=== PATIENT | male | born 1950 | race Hispanic/Latino ===

== ENCOUNTER → 2017-10-23 | Outpatient (CLI) | payer OTHER ==
[~2017-10-23] MED LIST: AMLO5TAB2 PO; ASPI-1005 PO; ATOR40TA69 PO; BUPR100T13 PO; CARV12.511 PO; CARV3.1262 PO; CLOP75TA14 PO; FURO40TA7 PO; NITR0.4T SL; OLME20TA10 PO; SACU1TAB7 PO; SPIR25TA PO; TRAM-355 PO
== END | disposition home or self-care (01) ==
LOC: SHCH 08:37
PROVIDERS: ATTEND Internal Medicine Cardiovascular Disease
DX: I42.9 Cardiomyopathy, unspecified (principal); I67.9 Cerebrovascular disease, unspecified
CPT/HCPCS: 93880

== ENCOUNTER → 2017-10-28 | Outpatient (CLI) | payer OTHER | END | disposition home or self-care (01) | LOC: SHCH 13:17 | PROVIDERS: ATTEND Internal Medicine Cardiovascular Disease | DX: I42.9 Cardiomyopathy, unspecified (principal) | CPT/HCPCS: 93306 ==

== ENCOUNTER → 2017-12-02 | Outpatient (CLI) | payer OTHER | END | disposition home or self-care (01) | LOC: SHCH 09:01 | PROVIDERS: ATTEND Internal Medicine Cardiovascular Disease | DX: I67.9 Cerebrovascular disease, unspecified (principal); R94.39 Abnormal result of other cardiovascular function study | CPT/HCPCS: 78481; A9512 ==

== ENCOUNTER 2017-12-16 09:28 | Observation (INO) | payer OTHER ==
[~2017-12-16] VITALS: Ht 165.1 cm; Wt 111.0 kg
[~2017-12-16 09:28] MED LIST changes: -BUPR100T13 PO; -SACU1TAB7 PO
[2017-12-16 10:04] LABS: BASOPHILS % (AUTO) 0.9 % (0.0-5.0); EOSINOPHILS % (AUTO) 3.3 % (0.0-8.0); HEMATOCRIT 42.7 % (42-54); LYMPHOCYTES % (AUTO) 20.4 % (21.0-51.0); MEAN CORPUSCULAR HEMOGLOBIN 30.2 pg (27.0-33.0); MEAN CORPUSCULAR HGB CONC 33.9 g/dL (32.0-36.0); MONOCYTES % (AUTO) 8.9 % (3.0-13.0); NEUTROPHILS % (AUTO) 66.5 % (40.0-77.0); PLATELET COUNT (AUTO) 256 K/uL (130-400); RED CELL DISTRIBUTION WIDTH 14.2 % (11.0-15.5); WHITE BLOOD COUNT (AUTO) 7.1 K/uL (4.8-10.8)
[2017-12-16 10:13] LABS: CREATININE 0.9 mg/dL (0.5-1.5); INR 1.02 (0.85-1.15); PARTIAL THROMBOPLASTIN TIME 28.5 SEC (26.3-35.5); PROTHROMBIN TIME 10.7 SEC (9.6-11.6)
[2017-12-16 10:23] LABS: B-TYPE NATRIURETIC PEPTIDE 35 pg/mL (0-100)
[2017-12-16 10:27] LABS: ALBUMIN 3.8 g/dL (3.5-5.0); BILIRUBIN,TOTAL 0.7 mg/dL (0.2-1.0); CREATINE KINASE MB 2.8 ng/mL (0.5-3.6); TOTAL PROTEIN, SERUM 8.2 g/dL (6.0-8.3)
[2017-12-16] MEDS ORDERED: ASPIRIN 325 MG TABLET ONE (12:27)
[2017-12-16] MEDS ORDERED: LACTULOSE 20 GM/30 ML UDCUP PO PRN (17:15)
[2017-12-16] MEDS ORDERED: HYDRALAZINE HCL 20 MG/ML VIAL IV PRN (17:15)
[2017-12-16] MEDS ORDERED: MORPHINE SULFATE 2 MG/ML 1ML SYG IV PRN (17:15)
[2017-12-16] MEDS ORDERED: ONDANSETRON HCL 4 MG/2 ML VIAL IV PRN (17:15)
[2017-12-16] MEDS ORDERED: NITROGLYCERIN 0.4 MG SL TAB SL PRN (17:15)
[2017-12-16] MEDS ORDERED: ACETAMINOPHEN 325 MG TAB PO PRN (17:15)
[2017-12-16] MEDS ORDERED: GUAIFENESIN-DM 200/20 MG 10 ML PO PRN (17:15)
[2017-12-16 17:53] LABS: CREATINE KINASE MB 1.9 ng/mL (0.5-3.6); CREATINE KINASE, TOTAL 141 U/L (21-232); MYOGLOBIN 53 ng/mL (10-92); TROPONIN I < 0.04 ng/mL (0.00-0.06)
[2017-12-17 01:49] LABS: CREATINE KINASE MB 1.7 ng/mL (0.5-3.6); TROPONIN I 0.04 ng/mL (0.00-0.06)
[2017-12-17 05:23] LABS: HEMOGLOBIN A1C 5.9 % (4.0-6.0)
[2017-12-17 05:27] LABS: POTASSIUM 3.8 mmol/L (3.5-5.1)
[2017-12-17] MEDS ORDERED: BUPR100T13 PO (08:35)
[2017-12-17] MEDS ORDERED: SACU1TAB7 PO (08:35)
[2017-12-17 08:44] VITALS: BP 134/73
[2017-12-17] MEDS: PANTOPRAZOLE SODIUM 40 MG TABLET.DR PO SCH (09:00)
[2017-12-17] MEDS: ENOXAPARIN SODIUM 40 MG/0.4 ML SYRINGE SQ SCH (09:00)
[2017-12-17] MEDS ORDERED: ENOXAPARIN SODIUM 40 MG/0.4 ML SYRINGE SQ ONE (09:39)
[2017-12-17] MEDS ORDERED: PANTOPRAZOLE SODIUM 40 MG TABLET.DR PO ONE (09:39)
[2017-12-17 16:00] VITALS: BP 139/89
[2017-12-17] MEDS ORDERED: TRAMADOL /APAP 37.5MG/325MG TAB PO PRN (19:30)
[2017-12-17] MEDS ORDERED: NITROGLYCERIN 0.4 MG SL TAB SL PRN (19:30)
[2017-12-17] MEDS ORDERED: ONDANSETRON HCL MDV 20ML 2 MG/ML VIAL IV PRN (19:42)
[2017-12-17] MEDS ORDERED: MORPHINE SULFATE 4 MG/1ML SYG IV PRN (19:42)
[2017-12-17 20:00] VITALS: BP 139/94
[2017-12-17] MEDS: VALSARTAN PO SCH (21:00)
[2017-12-17] MEDS: SACUBITRIL PO SCH (21:00)
[2017-12-17] MEDS: ATORVASTATIN CALCIUM 40 MG TABLET PO SCH (21:33)
[2017-12-17] MEDS: CARVEDILOL 3.125 MG TABLET PO SCH (21:35)
[2017-12-17 23:41] VITALS: BP 132/89
[2017-12-18] VITALS (12 sets, daily range): BP systolic 121–156; BP diastolic 75–97
[2017-12-18 06:04] LABS: BASOPHILS % (AUTO) 0.7 % (0.0-5.0); EOSINOPHILS % (AUTO) 3.5 % (0.0-8.0); HEMATOCRIT 39.5 % (42-54); MEAN CORPUSCULAR HEMOGLOBIN 31.4 pg (27.0-33.0); MEAN CORPUSCULAR HGB CONC 35.1 g/dL (32.0-36.0); MEAN CORPUSCULAR VOLUME 89.5 fL (79-99); MONOCYTES % (AUTO) 8.6 % (3.0-13.0); NEUTROPHILS % (AUTO) 64.2 % (40.0-77.0); PLATELET COUNT (AUTO) 227 K/uL (130-400); RED BLOOD CELL COUNT(AUTO) 4.41 MIL/uL (4.50-6.20); RED CELL DISTRIBUTION WIDTH 14.4 % (11.0-15.5); WHITE BLOOD COUNT (AUTO) 7.2 K/uL (4.8-10.8)
[2017-12-18 06:20] LABS: CREATININE 1.1 mg/dL (0.5-1.5); POTASSIUM 3.9 mmol/L (3.5-5.1)
[2017-12-18] MEDS: FUROSEMIDE 40 MG TABLET PO SCH (09:00)
[2017-12-18] MEDS ORDERED: ASPIRIN 81MG TAB.CHEW PO SCH (09:00)
[2017-12-18] MEDS: PANTOPRAZOLE SODIUM 40 MG TABLET.DR PO SCH (09:00)
[2017-12-18] MEDS: ENOXAPARIN SODIUM 40 MG/0.4 ML SYRINGE SQ SCH (09:00)
[2017-12-18] MEDS: SPIRONOLACTONE 25 MG TAB PO SCH (09:00)
[2017-12-18] MEDS ORDERED: CLOPIDOGREL BISULFATE 75 MG TAB PO SCH (09:00)
[2017-12-18] MEDS: VALSARTAN PO SCH ×2 (09:00→20:13)
[2017-12-18] MEDS: BUPROPION HCL 150 MG TABLET.SA PO SCH (09:00)
[2017-12-18] MEDS: CARVEDILOL 3.125 MG TABLET PO SCH ×2 (09:00→20:12)
[2017-12-18] MEDS: SACUBITRIL PO SCH ×2 (09:00→20:13)
[2017-12-18] MEDS ORDERED: REGADENOSON 0.4 MG/5 ML PF SYG IVP SCH (10:00)
[2017-12-18] MEDS ORDERED: SODIUM CHLORIDE 0.9% 500ML 500 ML IV SCH (13:55)
[2017-12-18] MEDS ORDERED: MORPHINE SULFATE 5 MG/ML VIAL IVP SCH (16:15)
[2017-12-18] MEDS ORDERED: TEMAZEPAM 30 MG CAP PO PRN (16:15)
[2017-12-18] MEDS ORDERED: ACETAMINOPHEN-CODEINE 300/30MG TAB PO PRN ×2 (16:15)
[2017-12-18] MEDS ORDERED: MORPHINE SULFATE 4 MG/1ML SYG IVP SCH (16:15)
[2017-12-18] MEDS ORDERED: ONDANSETRON HCL 4 MG/2 ML VIAL IVP PRN (16:15)
[2017-12-18] MEDS ORDERED: ONDANSETRON HCL 4 MG/2 ML VIAL IVP SCH (16:15)
[2017-12-18] MEDS: ATORVASTATIN CALCIUM 40 MG TABLET PO SCH (20:13)
[2017-12-19 04:22] VITALS: BP 130/79
[2017-12-19 05:05] LABS: BASOPHILS % (AUTO) 0.4 % (0.0-5.0); EOSINOPHILS % (AUTO) 2.3 % (0.0-8.0); HEMATOCRIT 40.9 % (42-54); LYMPHOCYTES % (AUTO) 22.9 % (21.0-51.0); MEAN CORPUSCULAR HEMOGLOBIN 30.3 pg (27.0-33.0); MEAN CORPUSCULAR HGB CONC 33.9 g/dL (32.0-36.0); MEAN CORPUSCULAR VOLUME 89.2 fL (79-99); MONOCYTES % (AUTO) 8.6 % (3.0-13.0); NEUTROPHILS % (AUTO) 65.8 % (40.0-77.0); PLATELET COUNT (AUTO) 228 K/uL (130-400); RED BLOOD CELL COUNT(AUTO) 4.58 MIL/uL (4.50-6.20); RED CELL DISTRIBUTION WIDTH 14.2 % (11.0-15.5); WHITE BLOOD COUNT (AUTO) 6.5 K/uL (4.8-10.8)
[2017-12-19 05:06] LABS: POTASSIUM 3.8 mmol/L (3.5-5.1)
[2017-12-19 07:00] VITALS: BP 128/71
[2017-12-19] MEDS ORDERED: CLOPIDOGREL BISULFATE 75 MG TAB PO SCH (09:00)
[2017-12-19] MEDS: VALSARTAN PO SCH (09:00)
[2017-12-19] MEDS: SACUBITRIL PO SCH (09:00)
[2017-12-19] MEDS ORDERED: ASPIRIN 81MG TAB.CHEW PO SCH (09:00)
[2017-12-19] MEDS: BUPROPION HCL 150 MG TABLET.SA PO SCH (09:54)
[2017-12-19] MEDS: PANTOPRAZOLE SODIUM 40 MG TABLET.DR PO SCH (09:54)
[2017-12-19] MEDS: FUROSEMIDE 40 MG TABLET PO SCH (09:54)
[2017-12-19] MEDS: SPIRONOLACTONE 25 MG TAB PO SCH (09:54)
[2017-12-19] MEDS: CARVEDILOL 3.125 MG TABLET PO SCH (09:54)
[2017-12-19] MEDS: ENOXAPARIN SODIUM 40 MG/0.4 ML SYRINGE SQ SCH (09:55)
[2017-12-19 11:00] VITALS: BP 146/78
[2017-12-19 19:18] VITALS: BP 140/68
== END 2017-12-19 15:37 | disposition home or self-care (01) ==
LOC: EDH 09:28 → EDHIP 11:50 → 3BH 12-17 16:43 → 2DH 12-18 16:20
PROVIDERS: ADMIT Family Medicine; ATTEND Family Medicine
DX: I25.110 Atherosclerotic heart disease of native coronary artery with unstable angina pectoris (principal); E11.9 Type 2 diabetes mellitus without complications; E78.5 Hyperlipidemia, unspecified; I11.0 Hypertensive heart disease with heart failure; I50.22 Chronic systolic (congestive) heart failure; G47.33 Obstructive sleep apnea (adult) (pediatric); E66.9 Obesity, unspecified; I25.5 Ischemic cardiomyopathy; Z87.891 Personal history of nicotine dependence; Z95.5 Presence of coronary angioplasty implant and graft; Z82.49 Family history of ischemic heart disease and other diseases of the circulatory system; Z83.3 Family history of diabetes mellitus; Z96.652 Presence of left artificial knee joint
CPT/HCPCS: 36415 ×4; 71045; 80048 ×3; 80053; 80061 ×2; 82550 ×3; 82553 ×3; 82948 ×4; 83036; 83874 ×2; 83880 ×2; 84484 ×3; 85025 ×3; 85610; 85730; 93005 ×4; 93458; 96372; 99285; C1760; C1769; C1874; C1887; C1894; C9600; G0378 ×76; J0583; J1644; J1650 ×2; J2270; J2785; J3490 ×2; Q9967 ×2

== ENCOUNTER → 2020-06-24 | Outpatient (CLI) | payer MEDICARE ==
[~2020-06-24] MED LIST changes: -AMLO5TAB2 PO; +BUPR100T13 PO; -CARV12.511 PO; -OLME20TA10 PO; +SACU1TAB7 PO
== END | disposition home or self-care (01) ==
LOC: SHCH 07:54
PROVIDERS: ATTEND Internal Medicine Cardiovascular Disease
DX: I50.22 Chronic systolic (congestive) heart failure (principal)
CPT/HCPCS: 78481; A9512

== ENCOUNTER 2021-03-14 05:55 | Day surgery (SDC) | payer MEDICARE ==
[2021-03-13 13:35] LABS: BASOPHILS % (AUTO) 0.6 % (0.0-5.0); EOSINOPHILS % (AUTO) 3.1 % (0.0-8.0); HEMATOCRIT 45.3 % (42-54); LYMPHOCYTES % (AUTO) 23.2 % (21.0-51.0); MEAN CORPUSCULAR HEMOGLOBIN 30.7 pg (27.0-33.0); MEAN CORPUSCULAR HGB CONC 33.1 g/dL (32.0-36.0); MEAN CORPUSCULAR VOLUME 92.8 fL (79-99); MONOCYTES % (AUTO) 9.8 % (3.0-13.0); NEUTROPHILS % (AUTO) 63.1 % (40.0-77.0); PLATELET COUNT (AUTO) 197 K/uL (130-400); RED BLOOD CELL COUNT(AUTO) 4.88 MIL/uL (4.50-6.20); RED CELL DISTRIBUTION WIDTH 13.7 % (11.0-15.5); WHITE BLOOD COUNT (AUTO) 5.4 K/uL (4.8-10.8)
[2021-03-13 13:43] LABS: CREATININE 0.9 mg/dL (0.5-1.5); POTASSIUM 4.1 mmol/L (3.5-5.1)
[2021-03-13 15:04] VITALS: BP 179/89
[~2021-03-14] VITALS: Ht 165.1 cm; Wt 109.1 kg
[2021-03-14] VITALS (8 sets, daily range): BP systolic 144–176; BP diastolic 82–101
[~2021-03-14 05:55] MED LIST changes: -ASPI-1005 PO; -BUPR100T13 PO; -CARV3.1262 PO; -CLOP75TA14 PO; -FURO40TA7 PO; +METO-408 PO; -NITR0.4T SL; +SACU1TAB PO; -SACU1TAB7 PO; -TRAM-355 PO
[2021-03-14] MEDS ORDERED: HEPARIN 10,000 UNIT/10ML (1,000 UNIT/ML) VIAL ONE (07:13)
[2021-03-14] MEDS ORDERED: SODIUM BICARB 50MEQ 50ML VIAL 50 ML ONE (07:13)
[2021-03-14] MEDS ORDERED: FENTANYL CITRATE PF 50 MCG/1 ML 2ML VIAL ONE (07:14)
[2021-03-14] MEDS ORDERED: LIDOCAINE HCL 400MG/20ML VIAL ONE (07:14)
[2021-03-14] MEDS ORDERED: MIDAZOLAM HCL 1 MG/ML 2ML VIAL ONE (07:14)
[2021-03-14] MEDS ORDERED: IODIXANOL 320 MG/ML 100 ML VIAL ONE (07:19)
[2021-03-14] MEDS ORDERED: 0.9%NACL 1000ML 1,000 ML IV SCH (08:00)
== END 2021-03-14 11:30 | disposition home or self-care (01) ==
LOC: DAH 05:55
PROVIDERS: ATTEND Internal Medicine Cardiovascular Disease
DX: I50.43 Acute on chronic combined systolic (congestive) and diastolic (congestive) heart failure (principal); I25.10 Atherosclerotic heart disease of native coronary artery without angina pectoris; I13.0 Hypertensive heart and chronic kidney disease with heart failure and stage 1 through stage 4 chronic kidney disease, or unspecified chronic kidney disease; N18.1 Chronic kidney disease, stage 1; I95.1 Orthostatic hypotension; I44.7 Left bundle-branch block, unspecified; E78.5 Hyperlipidemia, unspecified; E66.01 Morbid (severe) obesity due to excess calories; G47.33 Obstructive sleep apnea (adult) (pediatric); Z95.5 Presence of coronary angioplasty implant and graft; Z79.899 Other long term (current) drug therapy; Z98.890 Other specified postprocedural states; Z82.49 Family history of ischemic heart disease and other diseases of the circulatory system; Z68.38 Body mass index [BMI] 38.0-38.9, adult
CPT/HCPCS: 33289; 36415; 71045; 80048; 85025; 93005; A4215; A4216; A4221; A4222; A4223 ×3; A4606; A4663; A6260; C1760; C1769 ×2; C1894 ×3; C2624; J1644; J2250; J3010; J3490 ×2; Q9967; 99156; 99157

== ENCOUNTER → 2022-03-09 | Outpatient (CLI) | payer MEDICARE ==
[2022-03-09 12:49] LABS: POTASSIUM 3.8 mmol/L (3.5-5.1)
== END | disposition home or self-care (01) ==
LOC: LAB 08:21
PROVIDERS: ATTEND Internal Medicine Cardiovascular Disease
DX: I50.22 Chronic systolic (congestive) heart failure (principal)
CPT/HCPCS: 36415; 80048; 83880

== ENCOUNTER 2024-02-20 05:33 | Day surgery (SDC) | payer MEDICARE ==
[2024-02-18 09:25] LABS: BASOPHILS # (AUTO) 0.04 K/uL (0.00-0.20); BASOPHILS % (AUTO) 0.8 % (0.0-5.0); EOSINOPHILS # (AUTO) 0.11 K/uL (0.00-0.70); EOSINOPHILS % (AUTO) 2.1 % (0.0-8.0); HEMATOCRIT 53.6 % (42-54); IMMATURE GRANULOCYTE ABSOLUTE 0.01 K/uL (0-1); LYMPHOCYTES # (AUTO) 1.1 K/uL (1.0-4.8); LYMPHOCYTES % (AUTO) 21.8 % (21.0-51.0); MEAN CORPUSCULAR HEMOGLOBIN 30.3 pg (27.0-33.0); MEAN CORPUSCULAR HGB CONC 32.3 g/dL (32.0-36.0); MEAN CORPUSCULAR VOLUME 93.9 fL (79-99); MONOCYTES # (AUTO) 0.4 K/uL (0.1-1.0); MONOCYTES % (AUTO) 8.6 % (3.0-13.0); NEUTROPHILS # (AUTO) 3.4 K/uL (1.8-7.7); NEUTROPHILS % (AUTO) 66.5 % (40.0-77.0); PLATELET COUNT (AUTO) 183 K/uL (130-400); RED BLOOD CELL COUNT(AUTO) 5.71 MIL/uL (4.50-6.20); RED CELL DISTRIBUTION WIDTH 14.1 % (11.0-15.5); WHITE BLOOD COUNT (AUTO) 5.1 K/uL (4.8-10.8)
[2024-02-18 09:27] VITALS: BP 150/88; PULSE 63; RESP 19
[2024-02-18 09:28] LABS: APPEARANCE,URINE CLEAR (CLEAR); BILIRUBIN,URINE NEGATIVE (NEGATIVE); COLOR,URINE LIGHT-YELLOW (YELLOW); GLUCOSE, URINE (UA) >=1000 mg/dL (NEGATIVE); KETONES,URINE NEGATIVE (NEGATIVE); LEUKOCYTE ESTERASE ,URINE NEGATIVE Leu/uL (NEGATIVE); NITRATE,URINE NEGATIVE (NEGATIVE); OCCULT BLOOD,URINE NEGATIVE (NEGATIVE); PROTEIN,URINE NEGATIVE (NEGATIVE); UROBILINOGEN,URINE 0.2 mg/dL (0.2-1.0)
[2024-02-18 09:38] LABS: ADD UA MICROSCOPIC YES
[2024-02-18 09:45] LABS: MUCUS,URINE RARE LPF (None Seen); RBC,URINE 0-1 /HPF (0-1); WBC,URINE 0-1 /HPF (0-1)
[2024-02-18 09:47] LABS: POTASSIUM 4.8 mmol/L (3.5-5.1)
[2024-02-18 09:49] LABS: B-TYPE NATRIURETIC PEPTIDE 28 pg/mL (0-100)
[2024-02-18 09:58] LABS: INR 1.08 (0.85-1.15); PROTHROMBIN TIME 11.4 SEC (9.6-11.6)
[~2024-02-20] VITALS: Ht 165.1 cm; Wt 102.3 kg
[2024-02-20] VITALS (9 sets, daily range): BP systolic 103–159; BP diastolic 48–89; PULSE 56–76; RESP 10–21
[~2024-02-20 05:33] MED LIST changes: +AEC81 PO; -ATOR40TA69 PO; +ATOR40TA71 PO; +BREX0.5T PO; +DAPA5TAB PO; +FURO20TA4 PO; +MELA5CAP PO; +NITR0.4T50 SL; +POTA-364 PO; +SERT-438 PO; -SPIR25TA PO
[2024-02-20] MEDS: 0.9%NACL 1000ML 1,000 ML IV ONE (06:25)
[2024-02-20] MEDS ORDERED: SODIUM BICARB 50MEQ 50ML VIAL 50 ML ONE (07:15)
[2024-02-20] MEDS ORDERED: LIDOCAINE HCL 400MG/20ML VIAL ONE ×2 (07:15→09:27)
[2024-02-20] MEDS ORDERED: IOHEXOL 350 MG/ML 100ML INFUS..BTL IV ONE (07:15)
[2024-02-20] MEDS ORDERED: NITROGLYCERIN 50MG VIAL ONE (07:18)
[2024-02-20] MEDS ORDERED: MIDAZOLAM HCL 1 MG/ML 2ML VIAL ONE ×2 (07:23→09:38)
[2024-02-20] MEDS ORDERED: FENTANYL CITRATE PF 50 MCG/1 ML 2ML VIAL ONE ×2 (07:23→09:38)
[2024-02-20] MEDS ORDERED: IOHEXOL-350 50ML VIAL IV ONE (08:38)
[2024-02-20] MEDS ORDERED: IOHEXOL-350 75 ML VIAL IV ONE (09:31)
[2024-02-20] MEDS ORDERED: FUROSEMIDE 20MG VIAL ONE (10:12)
[2024-02-20] MEDS: 0.9% NACL 500ML IV.SOLN 500 ML IV SCH (10:14)
[2024-02-20] MEDS ORDERED: FUROSEMIDE 20MG VIAL IV ONE (10:30)
== END 2024-02-20 13:07 | disposition home or self-care (01) ==
LOC: DAH 05:33
PROVIDERS: ATTEND Internal Medicine Cardiovascular Disease
DX: I13.0 Hypertensive heart and chronic kidney disease with heart failure and stage 1 through stage 4 chronic kidney disease, or unspecified chronic kidney disease (principal); E11.22 Type 2 diabetes mellitus with diabetic chronic kidney disease; I50.22 Chronic systolic (congestive) heart failure; N18.1 Chronic kidney disease, stage 1; I25.10 Atherosclerotic heart disease of native coronary artery without angina pectoris; E66.01 Morbid (severe) obesity due to excess calories; E11.40 Type 2 diabetes mellitus with diabetic neuropathy, unspecified; G47.33 Obstructive sleep apnea (adult) (pediatric); I44.7 Left bundle-branch block, unspecified; Z99.89 Dependence on other enabling machines and devices; Z96.652 Presence of left artificial knee joint; Z79.01 Long term (current) use of anticoagulants; Z79.899 Other long term (current) drug therapy; Z68.38 Body mass index [BMI] 38.0-38.9, adult
CPT/HCPCS: 80048; 83880; 85025; 85378; 85610; 85730; 81001; 36415; 71045; 93005; 93460; 82948 ×2; C1894 ×4; C1760 ×2; J3010 ×2; J3490 ×4; J7030; J2250 ×2; J1940; J1644 ×3; Q9967 ×3; A4215; A4222; A4221; A4663; A4216; A4606; A4223 ×3; 96360; 96361; 99156; 99157

== ENCOUNTER 2024-06-12 13:23 | Observation (INO) | payer MEDICARE ==
[~2024-06-12] VITALS: Ht 165.1 cm; Wt 100.2 kg
[2024-06-12 14:21] LABS: HEMATOCRIT 49.8 % (42-54); MEAN CORPUSCULAR HEMOGLOBIN 29.7 pg (27.0-33.0); MEAN CORPUSCULAR HGB CONC 31.9 g/dL (32.0-36.0); MEAN CORPUSCULAR VOLUME 92.9 fL (79-99); RED BLOOD CELL COUNT(AUTO) 5.36 MIL/uL (4.50-6.20); WHITE BLOOD COUNT (AUTO) 4.5 K/uL (4.8-10.8)
[2024-06-12 14:32] LABS: CREATININE 1.1 mg/dL (0.5-1.3); POTASSIUM 5.1 mmol/L (3.5-5.1)
[2024-06-12 14:36] LABS: ALBUMIN 3.6 g/dL (3.5-5.0); BILIRUBIN,TOTAL 0.6 mg/dL (0.2-1.0); TOTAL PROTEIN, SERUM 7.6 g/dL (6.0-8.3)
[2024-06-12 14:47] LABS: INR 1.04 (0.85-1.15); PROTHROMBIN TIME 11.2 SEC (9.6-11.6)
[2024-06-12] MEDS ORDERED: ASPI-1197 PO (14:47)
[2024-06-12] MEDS ORDERED: NITR0.4T50 SL (14:47)
[2024-06-12] MEDS ORDERED: DAPA5TAB PO (14:47)
[2024-06-12] MEDS ORDERED: POTA20PA32 PO (14:47)
[2024-06-12] MEDS ORDERED: MELA10CA2 PO (14:47)
[2024-06-12 14:55] VITALS: BP 175/91; PULSE 62; RESP 18; TEMP 98.1
[2024-06-12] MEDS ORDERED: SERT-439 PO (14:58)
[2024-06-12] MEDS ORDERED: BREX2TAB PO (14:58)
[2024-06-12] MEDS ORDERED: AMIO200T68 PO (14:58)
[2024-06-12] MEDS ORDERED: METO-391 PO (14:58)
[2024-06-12 15:35] VITALS: O2SAT 97
[2024-06-12] MEDS ORDERED: LIDOCAINE HCL 400MG/20ML VIAL ONE (16:46)
[2024-06-12] MEDS ORDERED: SODIUM BICARB 50MEQ 50ML VIAL 50 ML ONE (16:46)
[2024-06-12] MEDS ORDERED: HEParin-NS 1,000 UNIT/500 ML 1,000 ML IV ONE (16:47)
[2024-06-12] MEDS ORDERED: MIDAZOLAM HCL 1 MG/ML 2ML VIAL ONE (17:29)
[2024-06-12] MEDS ORDERED: FENTanyl CITRate PF 50 MCG/1 ML 2ML VIAL ONE (17:29)
[2024-06-12 18:40] VITALS: BP 161/105; PULSE 63; RESP 19
[2024-06-12 18:50] VITALS: BP 160/104; PULSE 62; RESP 18
[2024-06-12 19:13] VITALS: BP 160/82; PULSE 63; RESP 18; TEMP 97.6
[2024-06-12 20:00] VITALS: O2SAT 97
== END 2024-06-12 22:24 | disposition home or self-care (01) ==
LOC: EDH 13:23 → EDHIP 13:34 → 2AH 14:30
PROVIDERS: ADMIT Internal Medicine Cardiovascular Disease; ATTEND Internal Medicine Cardiovascular Disease
DX: I13.0 Hypertensive heart and chronic kidney disease with heart failure and stage 1 through stage 4 chronic kidney disease, or unspecified chronic kidney disease (principal); I50.32 Chronic diastolic (congestive) heart failure; N18.1 Chronic kidney disease, stage 1; R06.00 Dyspnea, unspecified; E78.5 Hyperlipidemia, unspecified; E66.01 Morbid (severe) obesity due to excess calories; Z68.36 Body mass index [BMI] 36.0-36.9, adult; Z79.899 Other long term (current) drug therapy
CPT/HCPCS: 93456; 83735; 80053; 83880; 85027; 85610; 36415; 71045; C1894 ×2; G0378 ×6; G0379; J3490 ×2; J1644; 93451; J2250; J3010